=== PATIENT | male | born 1960 | race Caucasian/White ===

== ENCOUNTER 2020-08-21 13:50 | Inpatient (IN) ==
--- NOTE | 2020-08-21 14:20 | Emergency Department Note ---
Impression & Plan GIB (gastrointestinal bleeding), Acute anemia, Heme positive stool ED Provider Note NAME: TARA [id number] TERAN AGE: 60 SEX: M : 1960 ARRIVES VIA: Walk-In INFORMANT: Patient ED PROVIDER(S): Stanley Turner DO CHIEF COMPLAINT: Low hemoglobin HPI: Patient is a 60-year-old male who presents the ER referred in by snf after having blood work done. It was rechecked. Hemoglobin was 7 both times. He has never had this before. He has no other complaints. Denies any headache, chest pain, shortness of breath, nausea vomiting or diarrhea. No dysuria urgenc y or frequency. No dark tarry stools or bright red blood per rectum. [place] any blood thinners. No other exacerbating or remitting factors. No history of any previous colonoscopies. ROS: See above HPI for pertinent positives & negatives. A total of 10 systems reviewed and were otherwise negative. PAST MEDICAL HISTORY:See Below PAST SURGICAL HISTORY:See Below FAMILY HISTORY:See Below SOCIAL HISTORY:See Below HOME MEDICATIONS:See Below ALLERGIES:See Below VITALS:See Below PHYSICAL EXAMINATION: GENERAL: Sitting up in bed, alert, well appearing, well nourished, no distress, non-toxic EYE EXAM: normal conjunctiva. OROPHARYNX: no exudate, no erythema, lips, buccal mucosa, and tongue normal and mucous membranes are moist NECK: supple, no nuchal rigidity, no adenopathy, non-tender LUNGS: Clear to auscultation. Normal chest wall mechanics HEART: no murmurs, S1 normal and S2 normal ABDOMEN: abdomen soft, non-tender, normo-active bowel sounds, no masses, no rebound or guarding. RECTAL: UPPER EXTREMITIES: upper extremities are grossly normal. LOWER EXTREMITIES: No pitting edema. NEURO EXAM: Normal sensorium, cranial nerves II-XII grossly intact, normal speech, no gross weakness of arms, no gross weakness of legs. MEDICAL DECISION MAKING: Patient is a 58-year-old male referred in by snf for low hemoglobin. IV was established with work obtained. Labs show no significant leukocytosis. Mild anemia at 7. INR was unremarkable. BMP along with LFTs bilirubin was unremarkable. Heme positive stools. Patient was typed and screened. Blood consent was obtained by myself at bedside. Patient was updated bedside. Discussed with the hospitalist. Patient will be admitted for anemia with a hemoglobin of 7, rectally heme positive stools and no belly pain had no blood thinners. Uncertain of the previous hemoglobins. Triage Nursing notes reviewed. Prior medical records reviewed Vital Signs: reviewed and remarkable for no significant abnormalities Differential diagnosis: Differential diagnosis includes etiologies such as diverticulitis, diverticulosis, AVM, coagulopathy, colitis, inflammatory bowel disease, malignancy, Erin-Pinon tear, esophagitis, peptic ulcer disease, variceal bleed, gastritis, epistaxis, fissure, hemorrhoids, as well as others were entertained. ER treatment provided: See below Diagnostics interpreted by me: ECG: Sinus rhythm rate 84 Normal axis No PVCs Normal QTC Cardiac Monitoring: An order was placed for continuous cardiac monitoring. The monitor shows a rate of 82 with sinus rhythm. Laboratory studies: As stated above and show below. Imaging studies: See below Consultation(s): D/w hospitalist for further evaluation ED COURSE: Procedures: none Critical Care: None Past Med/Surg History Social History Smoking Status: Never smoker Feels Safe at Home: Yes Allergies Allergies Allergy/AdvReac Type Severity Reaction Status Date / Time No Known Allergies Allergy Unverified 08/21/20 14:23 Home Meds Home Medications Medication Instructions Recorded Confirmed pantoprazole 20 mg PO BID 08/21/20 08/21/20 simethicone [Mi-Acid Gas 160 mg PO TID 08/21/20 08/21/20 Relief(simethicon)] tamsulosin 0.4 mg PO DAILY 08/21/20 08/21/20 Results & Data (ED) Vital Signs Vital Signs - 24 hr 08/21/20 13:52 08/21/20 14:39 08/21/20 15:00 Temperature 36.8 C Temperature Source Oral Pulse Rate 88 86 Pulse Rate [Apical] 82 Pulse Rate from SpO2 Sensor 85 Pulse Rhythm Regular Pulse Strength Normal Respiratory Rate 18 18 19 Respiratory Effort / Characteristics Non-Labored Respiratory Depth Normal Respiratory Pattern Regular Blood Pressure 135/85 151/74 H Blood Pressure [Right Arm] 133/78 Blood Pressure Mean 101 86 Blood Pressure Mean [Right Arm] 96 Blood Pressure Position Sitting Pulse Oximetry 99 99 99 Oxygen Delivery Method Room Air Room Air Room Air Sepsis Recent Fever Within 48 Hours No Sepsis New/Unexplained Change in Mental Status No Sepsis Action Taken by Nursing No Action Required 08/21/20 15:30 08/21/20 16:00 08/21/20 16:30 Temperature Temperature Source Pulse Rate 80 80 83 Pulse Rate [Apical] Pulse Rate from SpO2 Sensor 80 80 83 Pulse Rhythm Pulse Strength Respiratory Rate 19 19 23 Respiratory Effort / Characteristics Respiratory Depth Respiratory Pattern Blood Pressure 144/78 H 127/82 145/91 H Blood Pressure [Right Arm] Blood Pressure Mean 93 91 102 Blood Pressure Mean [Right Arm] Blood Pressure Position Pulse Oximetry 99 100 99 Oxygen Delivery Method Room Air Room Air Room Air Sepsis Recent Fever Within 48 Hours Sepsis New/Unexplained Change in Mental Status Sepsis Action Taken by Nursing Laboratory Data Result diagrams: 08/21/20 14:14 08/21/20 14:14 Lab Results 08/21/20 08/21/20 08/21/20 Range/Units 14:14 14:14 14:14 WBC 7.25 (4.8-10.8) K/uL RBC 3.81 L (4.7-6.1) M/uL Hgb 7.0 L (14.0-18.0) g/dL Hct 26.0 L (42-52) % MCV 68.2 L (80-100) fL MCH 18.4 L (25-34) pg MCHC 26.9 L (32-36) g/dL RDW Std Deviation 44.8 (36.4-46.3) fL RDW Coeff of Herminio 18.6 H (11.5-14.5) % Plt Count 352 (130-400) K/uL MPV 11.1 H (7.4-10.4) fL Immature Gran % (Auto) 0.1 % Neut % (Auto) 73.8 % Lymph % (Auto) 14.1 % Erie % (Auto) 9.0 % Eos % (Auto) 1.8 % Baso % (Auto) 1.2 % Neut # (Auto) 5.35 (1.4-6.5) K/uL Lymph # (Auto) 1.02 L (1.2-3.4) K/uL Erie # (Auto) 0.65 H (0.11-0.59) K/uL Eos # (Auto) 0.13 (0-0.5) K/uL Baso # (Auto) 0.09 (0-0.2) K/uL Immature Gran # (Auto) 0.01 (0.00-0.02) K/uL Hypochromasia Present Microcytosis Present PT 10.9 (9.0-12.0) Seconds INR 1.0 (0.9-1.1) APTT 26.5 (21.0-31.0) Seconds PTT Ratio 0.9 Sodium (136-145) mmol/L Potassium (3.5-5.1) mmol/L Chloride (98-107) mmol/L Carbon Dioxide (21-32) mmol/L Anion Gap (3-11) BUN (7-18) mg/dl Creatinine (0.6-1.4) mg/dl Est Cr Clr Drug Dosing ml/min Est GFR ( Amer) Est GFR (Non-Af Amer) BUN/Creatinine Ratio (10-20) Glucose (70-99) mg/dl Calcium (8.5-10.1) mg/dl Total Bilirubin (0.2-1) mg/dl AST (15-37) U/L ALT (12-78) U/L Alkaline Phosphatase (45-117) U/L Total Protein (6.4-8.2) gm/dl Albumin (3.4-5.0) gm/dl Globulin (2.5-4.0) gm/dl Albumin/Globulin Ratio (0.9-2) POC Stool Occult Blood (Negative) Blood Type B Positive Antibody Screen NEGATIVE 08/21/20 08/21/20 Range/Units 14:14 Unknown WBC (4.8-10.8) K/uL RBC (4.7-6.1) M/uL Hgb (14.0-18.0) g/dL Hct (42-52) % MCV (80-100) fL MCH (25-34) pg MCHC (32-36) g/dL RDW Std Deviation (36.4-46.3) fL RDW Coeff of Herminio (11.5-14.5) % Plt Count (130-400) K/uL MPV (7.4-10.4) fL Immature Gran % (Auto) % Neut % (Auto) % Lymph % (Auto) % Erie % (Auto) % Eos % (Auto) % Baso % (Auto) % Neut # (Auto) (1.4-6.5) K/uL Lymph # (Auto) (1.2-3.4) K/uL Erie # (Auto) (0.11-0.59) K/uL Eos # (Auto) (0-0.5) K/uL Baso # (Auto) (0-0.2) K/uL Immature Gran # (Auto) (0.00-0.02) K/uL Hypochromasia Microcytosis PT (9.0-12.0) Seconds INR (0.9-1.1) APTT (21.0-31.0) Seconds PTT Ratio Sodium 138 (136-145) mmol/L Potassium 4.1 (3.5-5.1) mmol/L Chloride 107 (98-107) mmol/L Carbon Dioxide 25 (21-32) mmol/L Anion Gap 6.0 (3-11) BUN 10 (7-18) mg/dl Creatinine 0.83 (0.6-1.4) mg/dl Est Cr Clr Drug Dosing 86.3 ml/min Est GFR ( Amer) 109.3 Est GFR (Non-Af Amer) 94.3 BUN/Creatinine Ratio 12.2 (10-20) Glucose 104 H (70-99) mg/dl Calcium 8.3 L (8.5-10.1) mg/dl Total Bilirubin 0.3 (0.2-1) mg/dl AST 32 (15-37) U/L ALT 43 (12-78) U/L Alkaline Phosphatase 137 H (45-117) U/L Total Protein 7.6 (6.4-8.2) gm/dl Albumin 3.5 (3.4-5.0) gm/dl Globulin 4.1 H (2.5-4.0) gm/dl Albumin/Globulin Ratio 0.8 L (0.9-2) POC Stool Occult Blood Positive A (Negative) Blood Type Antibody Screen Discharge Plan Visit Data Chief Complaint: Abnormal Labs/Diagnostic Testing Stated Complaint: LOW H/H ED Provider: Stanley Turner Discharge Problem: GIB (gastrointestinal bleeding), Acute anemia, Heme positive stool Forms Stand Alone Forms: [facility] Prescriptions Prescriptions: No Action pantoprazole 20 mg Tablet,Delayed Release (Dr/Ec) 20 mg PO BID RF: 0 tamsulosin 0.4 mg Capsule 0.4 mg PO DAILY RF: 0 simethicone [Mi-Acid Gas Relief(simethicon)] 80 mg Tablet,Chewable 160 mg PO TID RF: 0 Discharge Problem: GIB (gastrointestinal bleeding) Qualifiers: GI bleed type/associated pathology: unspecified gastrointestinal hemorrhage type Qualified Code(s): K92.2 - Gastrointestinal hemorrhage, unspecified
[2020-08-21 14:44] LABS: Partial Thromboplastin Ratio 0.9; Partial Thromboplastin Time 26.5 Seconds (21.0-31.0); Prothrombin Time 10.9 Seconds (9.0-12.0)
[2020-08-21 14:47] LABS: Albumin Level 3.5 gm/dl (3.4-5.0); BUN Creatinine Ratio 12.2 (10-20); Basophils # (auto) 0.09 K/uL (0-0.2); Basophils % (auto) 1.2 %; Calcium 8.3 mg/dl (8.5-10.1); Creatinine Clr Calc Pharmacy 86.3 ml/min; Eosinophils # (auto) 0.13 K/uL (0-0.5); Eosinophils % (auto) 1.8 %; Est GFR (African American) 109.3; Est GFR (Non-African American) 94.3; Hypochromasia Present; Immature Granulocytes # (auto) 0.01 K/uL (0.00-0.02); Immature Granulocytes % (auto) 0.1 %; Lymphocytes # (auto) 1.02 K/uL (1.2-3.4); Lymphocytes % (auto) 14.1 %; Mean Corpuscular Hemoglobin 18.4 pg (25-34); Mean Corpuscular Hgb Conc 26.9 g/dL (32-36); Mean Corpuscular Volume 68.2 fL (80-100); Mean Platelet Volume 11.1 fL (7.4-10.4); Microcytosis Present; Monocytes # (auto) 0.65 K/uL (0.11-0.59); Neutrophils # (auto) 5.35 K/uL (1.4-6.5); Neutrophils % (auto) 73.8 %; Platelet Count 352 K/uL (130-400); Potassium 4.1 mmol/L (3.5-5.1); RDW Coefficient of Variation 18.6 % (11.5-14.5); RDW Standard Deviation 44.8 fL (36.4-46.3); Red Blood Count 3.81 M/uL (4.7-6.1); White Blood Count 7.25 K/uL (4.8-10.8)
[2020-08-21 14:50] LABS: Albumin Globulin Ratio 0.8 (0.9-2); Bilirubin,Total 0.3 mg/dl (0.2-1); Globulin 4.1 gm/dl (2.5-4.0); Total Protein 7.6 gm/dl (6.4-8.2)
--- NOTE | 2020-08-21 16:19 | History & Physical Report ---
Date of Service August 21, 2020 Assessment & Plan (1) Acute anemia: * H&H of 7.0/26.0 which has been consistent over the past several days. * Will trend H&H. * Patient filled out blood consent for transfusion if needed. * Heme POSITIVE stools. See GIB. * Thankfully, patient asymptomatic at this time. Will monitor on tele. Present on Admission?: Yes (2) GIB (gastrointestinal bleeding): * Concerning in the anemia patient w/ heme positive stools. * Will add Protonix BID. * Trend H&H * Transfuse if needed. * Monitor closely on Tele. * No prior Colonoscopy. Brother w/ recent h/o polypectomy. * Currently takes Famotidine daily for "heart burn" * Appreciate GI Recommendations. Present on Admission?: Yes (3) Heme positive stool: * Continue w/ Treatment outline in GIB/Acute Anemia Present on Admission?: Yes Admission and Anticipated Discharge Date Admission Date: 08/21/2020 History of Present Illness Primary Care Provider: [facility] Patient is a 60-year-old male with limited reported past medical history of GERD and prostamegaly that is currently incarcerated at [facility]. He states that he has been enjoying his typical state of good health, but had yearly labs performed last week that were done as part of his routine yearly physical exam. He states that after his labs, he was contacted by the [facility] as they were concerned for his H&H as well as his potassium levels. He had labs repeated which demonstrated persistently low hemoglobin and hematocrit levels. He was subsequently directed to the emergency department for further evaluation and management. Upon arrival in the emergency department, the patient was noted to have hemoglobin of 7.0 with hematocrit of 26. This is been consistent for the last few days. Patient states that despite these numbers, he has noted no change in his physical activity or tolerance. He states that he walks daily every day outside and has been performing the duties of his job without issue. He specifically denies any presyncopal symptoms, dizziness, lightheadedness, shortness of breath, chest pain, palpitations, or abdominal pain. He denies any black/tarry stools. He states that he did perform Hemoccult testing as part of his yearly evaluation which she was informed were negative. He denies any family history of colon cancer, however he states that his brother did recently have a colonoscopy with subsequent polypectomy. His father had a history of liver cancer as well as lung cancer. Mother did have significant history for factor VII deficiency. He states that he has been aware of this and does take note when he bleeds from anything. He did mayelin his ear recently while shaving and states that he stopped bleeding within 30 minutes. He has never noted any issues with bleeding in the past. Patient has personally never had a colonoscopy performed. He was institutionalized just before the age of 48 and has had no routine maintenance that he is aware of. Patient denies any headaches, dizziness, lightheadedness, chest pain, palpitations, shortness of breath, pleuritic pain, nausea, vomiting, abdominal pain, hematochezia, melena, hematuria, dysuria, or numbness/weakness to the extremities. Patient denies any recent exposure to COVID-19 positive individuals. He reports no history of recent shortness of breath, cough, fevers, GI distress, or loss of taste/smell. Allergies Allergy/AdvReac Type Severity Reaction Status Date / Time No Known Allergies Allergy Unverified 08/21/20 14:23 Home Medications Home Medications Medication Instructions Recorded Confirmed Type pantoprazole 20 mg PO BID 08/21/20 08/21/20 History simethicone [Mi-Acid Gas 160 mg PO TID 08/21/20 08/21/20 History Relief(simethicon)] tamsulosin 0.4 mg PO DAILY 08/21/20 08/21/20 History Past Med/Surg History Social History Smoking Status: Never smoker Feels Safe at Home: Yes Review of Systems Review of Systems: A complete 10 point review of systems was reviewed with the patient with pertinent positives and negatives as per history of present illness. All else were negative. Physical Exam Physical Exam: VITAL SIGNS - Vital signs and nursing notes were reviewed. GENERAL - 60-year-old male appearing his stated age who is in no acute distress. Communicates well with provider and answers questions appropriately. HEAD - NC/AT. EYES - PERRL with EOMI bilaterally. Sclera anicteric. Palpebral conjunctiva pink and moist with no injection noted. EARS - No deformities of external structures noted on gross examination bilaterally. No pain elicited with palpation of the tragus bilaterally. NOSE - Midline and without cyanosis. No epistaxis or purulent drainage noted. MOUTH/OROPHARYNX - Without perioral cyanosis. Buccal mucosa pink and moist and without leukoplakia. Tongue midline with equal elevation of palate bilaterally. Good dentition noted. NECK - Neck with FROM. Supple to palpation. No nuchal rigidity. LUNGS - Chest wall symmetric without accessory muscle use, intercostals retractions, or central cyanosis. Normal vesicular breath sounds CTA B/L. No wheezes, rales, or rhonchi appreciated. CARDIAC - RRR with S1/S2. No murmur, rubs, or gallops appreciated. ABDOMEN - Abdominal contour flat without pulsations or visible masses. Negative Rodger's or Arroyo Shaffer's Signs. BS normoactive all four quadrants. No tenderness to palpation appreciated throughout. No guarding. No Rebound Tenderness. Negative Vovsing's. Negative Nascimento's. No palpable masses, hepatosplenomegaly, or ascites noted. EXTREMITIES - No clubbing or peripheral cyanosis. No pretibial edema present. +3/5 radial and dorsalis pedis pulses palpated throughout. +5/5 strength noted in UE/LE bilaterally. NEUROLOGIC - Cranial nerves II through XII grossly intact. Sensory intact to light touch throughout. PSYCH - A&Ox3 and cooperates fully with examiner. Pt is very pleasant and interacts well with examiner. Constitutional: WD/WN, vitals as above Eyes: normal visual sosa by confrontation and + anicteric sclerae Neck: normal visual inspection and trachea midline Respiratory: normal respiratory effort, lungs clear to auscultation Cardiovascular: Rate/Rhythm: regular rate and regular rhythm Chest (Breasts): Additional Comments: region of breast just outside of nipple, R upper/lateral with fibrous feeling mass, circumscribed, mobile c/w fibrocystic vs scar tissue Gastrointestinal (Abdomen): Inspection/Auscultation: abdomen not distended Percussion/Palpation: abdomen soft; abdomen nontender Musculoskeletal: Head/Neck/Chest: normocephalic and head atraumatic Neg for peripheral LE edema, + pedal pulses Skin: no rashes, warm and dry Neurologic: awake; not confused Speech / Cognition: normal speech Psychiatric: A+Ox3, euthymic affect Lymphatic: Exam as done by Ophelia Sin DO Results & Data Results & Data ([facility]) Vital Signs (Past 12 Hours) Vital Signs Temp Pulse Pulse Resp BP BP Pulse Ox 08/21/20 15:30 80 19 144/78 H 99 08/21/20 15:00 86 19 151/74 H 99 08/21/20 14:39 82 18 133/78 99 08/21/20 13:52 36.8 C 88 18 135/85 99 Code Status & VTE Plan VTE Prophylaxis Plan VTE Prophylaxis will be ordered: No Reason for no VTE drug order: Contraindicated (GIB) Supervising Physician Co-Signing Physician Notes Pt seen and examined by me. States he has felt well and doing his daily walking, going to work. Routine labs were done and noted for Hb 7.0 a few days ago. Repeat today at snf was same and so pt was sent here for further workup. Denies chest pain or SOB. Tolerating PO without issue. States he shaves his chest occasionally and a few weeks ago, he had a minor cut around his L nipple. States that he noted a lump there at that time. States it is more noticeable when he leans forward. No abd skin findings, discharge, bleeding. No FH breast or colon ca Agree with HPI/ROS as noted by PA See above for my exam in PE section Agree with plan as outlined above Heme + Repeat H/H 8p Transfuse as needed GI c/s NPO Advised that L breast lump is c/w fibrocystic vs scar tissue Can pursue breast US as outpt PG Care Time/CCT Total # of Minutes Spent Total Time Spent with Patient: Total time spent is greater than 50% in coordination of care (as documented) at patient's floor/unit and/or counseling patient: Coding Level of Care Code 51821 Initial Inpt Care Lvl 3 Diagnoses Acute anemia D64.9 GIB (gastrointestinal bleeding) K92.2 GI bleed type/associated pathology: unspecified gastrointestinal hemorrhage type Heme positive stool R19.5 Time Spent (min) 35 (1) GIB (gastrointestinal bleeding) GI bleed type/associated pathology: unspecified gastrointestinal hemorrhage type Qualified Code(s): K92.2 - Gastrointestinal hemorrhage, unspecified
[2020-08-21] MEDS ORDERED: ONDANSETRON INJ 2 MG/ML 2 ML VIAL IV PRN (18:51)
[2020-08-21] MEDS: SODIUM CHLORIDE 0.9% 1000ML 1,000 ML IV SCH (19:42)
[2020-08-21 20:35] LABS: Hematocrit (blood only) 24.9 % (42-52); Hemoglobin 6.7 g/dL (14.0-18.0)
[2020-08-21] MEDS: PANTOprazole 40 MG in SYRINGE 0 ML IV SCH (20:50)
[2020-08-21] MEDS ORDERED: SODIUM CHLORIDE 0.9% 250 ML IV PRN (21:01)
--- NOTE | 2020-08-21 21:06 | Communication Note ---
Date of Service: August 21, 2020 Notified that pt's Hgb recheck came back at 6.7. Ordered 2U to be transfused. Re-check of H/H already ordered for 2AM, q6h after that. 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
--- NOTE | 2020-08-22 05:37 | Electrocardiogram Report ---
Test Reason : Blood Pressure : / mmHG Vent. Rate : 084 BPM Atrial Rate : 084 BPM P-R Int : 130 ms QRS Dur : 084 ms QT Int : 386 ms P-R-T Axes : 046 055 048 degrees QTc Int : 456 ms Normal sinus rhythm Normal ECG No previous ECGs available Confirmed by Ramone Chaidez ([id number]) on 08/22/2020 5:36:50 AM Referred By: [facility] Confirmed By:Ramone Chaidez
[2020-08-22] MEDS: PANTOprazole 40 MG in SYRINGE 0 ML IV SCH (08:30)
[2020-08-22 09:22] LABS: Hemoglobin 9.2 g/dL (14.0-18.0); Mean Corpuscular Hemoglobin 20.2 pg (25-34); Mean Corpuscular Hgb Conc 28.8 g/dL (32-36); Mean Corpuscular Volume 70.2 fL (80-100); Platelet Count 321 K/uL (130-400); RDW Coefficient of Variation 21.1 % (11.5-14.5); Red Blood Count 4.56 M/uL (4.7-6.1); White Blood Count 5.15 K/uL (4.8-10.8)
[2020-08-22 09:30] LABS: Basophils % (auto) 1.9 %; Eosinophils # (auto) 0.12 K/uL (0-0.5); Eosinophils % (auto) 2.3 %; Hypochromasia Present; Immature Granulocytes # (auto) 0.01 K/uL (0.00-0.02); Immature Granulocytes % (auto) 0.2 %; Lymphocytes # (auto) 0.79 K/uL (1.2-3.4); Lymphocytes % (auto) 15.3 %; Microcytosis Present; Monocytes # (auto) 0.49 K/uL (0.11-0.59); Monocytes % (auto) 9.5 %; Neutrophils # (auto) 3.64 K/uL (1.4-6.5); Neutrophils % (auto) 70.8 %; Rouleaux 1+
[2020-08-22 09:35] LABS: BUN Creatinine Ratio 11.1 (10-20); Calcium 8.2 mg/dl (8.5-10.1); Creatinine Clr Calc Pharmacy 92.4 ml/min; Est GFR (African American) 113.3; Est GFR (Non-African American) 97.8; Potassium 4.7 mmol/L (3.5-5.1)
--- NOTE | 2020-08-22 10:06 | Gastrointestinal Consultation ---
Date of Consultation August 22, 2020 Assessment & Plan (1) GIB (gastrointestinal bleeding): (2) Heme positive stool: Diff dx: PUD vs AVM vs mass vs other. 1. Remain NPO for now. 2. EGD with Dr. Cruz today for further evaluation. 3. Continue Pantoprazole 40 mg IV BID. 4. Continue supportive care. 5. Additional recommendations will be made pending results of testing. Thank you for allowing us to participate in the care of this patient. If you have any questions or concerns, please do not hesitate to contact us. Supervising Physician Co-Signing Physician Notes I personally evaluated the patient and agree with the findings as documented by NAHUN Perez Exam: abd: soft, nt, nd Proceed with EGD. risks/benefits and procedure discussed with patient, who agrees to proceed History of Present Illness Reason for Consultation: GIB Requesting Physician: Lamont Garcia PA-C Attending Physician: Alvarado Donahue MD History of Present Illness Patient is a 60 year-old male admitted from [facility] after being found to be profoundly anemic during a routine health evaluation. Reports that he did have 6 negative [facility] tests [facility] States he has no symptoms of anemia such as: chest pain, shortness of breath, MAST, dizziness, syncope or fatigue. He further denies any overt GIB symptoms. He does endorse progressively worsening pyrosis since December of this year. He states he did seek sick call to obtain acid suppressive medications and Gas-x due to increased flatus. No ibuprofen use but he does endorse daily low dose aspirin use. No nausea or vomiting, anorexia, abdominal pain, diarrhea or constipation. He has been admitted with a H&H of 7.3/27.9 and ferritin 2.4. He was heme positive in the ER. Repeat H&H this morning was noted to be 7.3/27.2. The patient has been placed on NPO status and initiated on twice daily Protonix. No family history of GI malignancy or IBD. Allergies Allergy/AdvReac Type Severity Reaction Status Date / Time No Known Allergies Allergy Unverified 08/21/20 14:23 Home Medications Home Medications Medication Instructions Recorded Confirmed Type pantoprazole 20 mg PO BID 08/21/20 08/21/20 History simethicone [Mi-Acid Gas 160 mg PO TID 08/21/20 08/21/20 History Relief(simethicon)] tamsulosin 0.4 mg PO DAILY 08/21/20 08/21/20 History Patient History Medical History (Updated 08/22/20 @ 11:52 by Lisa Navarro MD) Acute anemia GERD (gastroesophageal reflux disease) GIB (gastrointestinal bleeding) Surgical History (Updated 08/22/20 @ 11:52 by Lisa Navarro MD) No significant past surgical history Family History (Updated 08/22/20 @ 11:52 by Lisa Navarro MD) Mother Clotting disorder Factor V Leiden Social History Smoking Status: Former smoker Second Hand Exposure: No; Do You Dip or Chew Tobacco: No; Hx Alcohol Use: No Hx Substance Use: No Preferred Language: Dominican Communication Ability: Effective 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 Beliefs That Will Affect Care: None Current Living Situation: Other Other Information That Helps Us Care for You: No Feels Safe at Home: Yes Safety Concerns: Feels Safe At This Time Assistive Devices: Glasses Assistive Devices Comment: With patient Review of Systems Review of Systems: All systems reviewed & are unremarkable except as noted in HPI & below Physical Exam Constitutional: WD/WN, vitals as above Eyes: EOM intact bilaterally Neck: normal appearance Respiratory: normal respiratory effort, lungs clear to auscultation Cardiovascular: Rate/Rhythm: regular rate and regular rhythm Heart Sounds: no gallop and no murmur Gastrointestinal (Abdomen): normal bowel sounds, soft, nontender, no hepatosplenomegaly Inspection/Auscultation: abdomen not distended Musculoskeletal: Extremities: no cyanosis no lower extremity edema Skin: no rashes, warm and dry Neurologic: moves all extremities Psychiatric: A+Ox3, euthymic affect Results & Data ([facility]) Vital Signs (Past 12 Hours) Vital Signs Temp Pulse Pulse Resp BP BP Pulse Ox 08/22/20 08:05 36.8 C 56 L 18 124/69 96 08/22/20 04:25 36.9 C 63 18 113/65 99 08/22/20 03:18 36.9 C 68 18 122/74 96 08/22/20 02:48 36.8 C 72 18 119/75 96 08/22/20 02:33 36.8 C 69 18 124/74 95 08/22/20 02:11 36.9 C 69 18 130/77 97 08/22/20 01:11 36.8 C 62 18 132/80 96 08/22/20 00:55 36.8 C 62 18 132/80 96 08/22/20 00:27 36.7 C 68 18 118/73 95 08/21/20 23:37 65 08/21/20 23:27 36.7 C 66 18 129/80 97 08/21/20 22:57 36.9 C 64 16 124/76 97 08/21/20 22:42 37.1 C 63 16 128/79 97 08/21/20 22:18 36.8 C 66 18 137/82 98 Laboratory Results Abnormal lab results 08/21/20 08/21/20 08/21/20 Range/Units 14:14 14:14 14:14 RBC 3.81 L (4.7-6.1) M/uL Hgb 7.0 L (14.0-18.0) g/dL Hct 26.0 L (42-52) % MCV 68.2 L (80-100) fL MCH 18.4 L (25-34) pg MCHC 26.9 L (32-36) g/dL RDW Std Deviation (36.4-46.3) fL RDW Coeff of Herminio 18.6 H (11.5-14.5) % MPV 11.1 H (7.4-10.4) fL Lymph # (Auto) 1.02 L (1.2-3.4) K/uL [place] # (Auto) 0.65 H (0.11-0.59) K/uL Chloride (98-107) mmol/L Glucose 104 H (70-99) mg/dl Calcium 8.3 L (8.5-10.1) mg/dl Alkaline Phosphatase 137 H (45-117) U/L Globulin 4.1 H (2.5-4.0) gm/dl Albumin/Globulin Ratio 0.8 L (0.9-2) POC Stool Occult Blood (Negative) Crossmatch See Detail 08/21/20 08/21/20 08/22/20 Range/Units 20:04 Unknown 08:30 RBC 4.56 L (4.7-6.1) M/uL Hgb 6.7 L* 9.2 L (14.0-18.0) g/dL Hct 24.9 L 32.0 L (42-52) % MCV 70.2 L (80-100) fL MCH 20.2 L (25-34) pg MCHC 28.8 L (32-36) g/dL RDW Std Deviation 52.0 H (36.4-46.3) fL RDW Coeff of Herminio 21.1 H (11.5-14.5) % MPV 11.0 H (7.4-10.4) fL Lymph # (Auto) 0.79 L (1.2-3.4) K/uL [place] # (Auto) (0.11-0.59) K/uL Chloride (98-107) mmol/L Glucose (70-99) mg/dl Calcium (8.5-10.1) mg/dl Alkaline Phosphatase (45-117) U/L Globulin (2.5-4.0) gm/dl Albumin/Globulin Ratio (0.9-2) POC Stool Occult Blood Positive A (Negative) Crossmatch 08/22/20 Range/Units 08:30 RBC (4.7-6.1) M/uL Hgb (14.0-18.0) g/dL Hct (42-52) % MCV (80-100) fL MCH (25-34) pg MCHC (32-36) g/dL RDW Std Deviation (36.4-46.3) fL RDW Coeff of Herminio (11.5-14.5) % MPV (7.4-10.4) fL Lymph # (Auto) (1.2-3.4) K/uL [place] # (Auto) (0.11-0.59) K/uL Chloride 110 H (98-107) mmol/L Glucose (70-99) mg/dl Calcium 8.2 L (8.5-10.1) mg/dl Alkaline Phosphatase (45-117) U/L Globulin (2.5-4.0) gm/dl Albumin/Globulin Ratio (0.9-2) POC Stool Occult Blood (Negative) Crossmatch PG Care Time/CCT Total # of Minutes Spent Total Time Spent with Patient: Total time spent is greater than 50% in coordination of care (as documented) at patient's floor/unit and/or counseling patient: Coding Level of Care Code 70376 Office/OBS Consult Lvl 4 Diagnoses GIB (gastrointestinal bleeding) K92.2 GI bleed type/associated pathology: unspecified gastrointestinal hemorrhage type Heme positive stool R19.5 (1) GIB (gastrointestinal bleeding) GI bleed type/associated pathology: unspecified gastrointestinal hemorrhage type Qualified Code(s): K92.2 - Gastrointestinal hemorrhage, unspecified
--- NOTE | 2020-08-22 11:53 | Anesthesiology Consultation ---
Date of Service August 22, 2020 Assessment & Plan (1) Encounter for pre-operative examination: Chart Review Chart Review: Acceptable Risk for Surgery and Patient NOT seen in Pre Admission Testing Consults Requested none History Surgery Operation Date: 08/22/20 16:30 Proposed Procedures p Esophagogastroduodenoscopy Dr. Nancy Cruz MD Height/Weight Height: 5 ft 7 in Weight: 64.8 kg Allergies Allergy/AdvReac Type Severity Reaction Status Date / Time No Known Allergies Allergy Unverified 08/21/20 14:23 Medications Home Medications Medication Instructions Recorded Confirmed Last Taken pantoprazole 20 mg PO BID 08/21/20 08/21/20 Unknown simethicone [Mi-Acid Gas 160 mg PO TID 08/21/20 08/21/20 Unknown Relief(simethicon)] tamsulosin 0.4 mg PO DAILY 08/21/20 08/21/20 Unknown Active Medications Generic Name Dose Route Start Last Admin Trade Name Freq PRN Reason Stop Dose Admin Sodium Chloride 1,000 mls @ 100 mls/hr 08/21/20 18:51 08/22/20 04:27 Nss 1000ml IV 09/20/20 18:50 100 mls/hr .Q10H HUSSEIN Infusion Pantoprazole Sodium 40 mg/ 10 mls @ 5 mls/min 08/21/20 21:00 08/22/20 08:30 Syringe IV 09/20/20 20:59 5 mls/min BID HUSSEIN Administration Past Medical History Medical History (Updated 08/22/20 @ 11:52 by Lisa Navarro MD) Acute anemia GERD (gastroesophageal reflux disease) GIB (gastrointestinal bleeding) Past Family History Family History (Updated 08/22/20 @ 11:52 by Lisa Navarro MD) Mother Clotting disorder Factor V Leiden Past Surgical History Surgical History (Updated 08/22/20 @ 11:52 by Lisa Navarro MD) No significant past surgical history Social History Smoking Status: Former smoker Do You Dip or Chew Tobacco: No Hx Alcohol Use: No Hx Substance Use: No Physical Exam Vital Signs Last Vital Signs Temp 36.8 C 08/22/20 08:05 Pulse 75 08/22/20 08:30 Resp 18 08/22/20 08:05 BP 124/69 08/22/20 08:05 Pulse Ox 96 08/22/20 08:05 Testing Laboratory Results 08/22/20 08:30 08/22/20 08:30 PT 10.9 Seconds (9.0-12.0) 08/21/20 14:14 INR 1.0 (0.9-1.1) 08/21/20 14:14 APTT 26.5 Seconds (21.0-31.0) 08/21/20 14:14 Blood Type B Positive 08/21/20 14:14 Antibody Screen NEGATIVE 08/21/20 14:14
[2020-08-22] MEDS: SODIUM CHLORIDE 0.9% 1000ML 1,000 ML IV SCH ×2 (14:02→16:08)
[2020-08-22] MEDS ORDERED: LIDOCAINE HCL 2% 2 ML VIAL/AMP(20MG/ML) INFIL ONE (15:24)
[2020-08-22] MEDS ORDERED: PROPOFOL IV EMULSION 10 MG/ML 20 ML VIAL IV ONE ×2 (15:24→15:45)
--- NOTE | 2020-08-22 15:46 | GI REPORT ---
Patient Name: Miguel Angel Glynn Procedure Date: 08/22/2020 2:57 PM Date of : 1960 Admit Type: Inpatient Age: 60 Gender: Male Attending MD: Marshall Cruz MD Procedure: Upper GI endoscopy Providers: Marshall Cruz MD Referring MD: Alvarado Donahue Md Indications: Unexplained iron deficiency anemia Medicines: Monitored Anesthesia Care Complications: No immediate complications. Estimated blood loss: None. Estimated Blood Loss: Estimated blood loss: none. Procedure: Pre-Anesthesia Assessment: - Prior Anticoagulants: The patient has taken no previous anticoagulant or antiplatelet agents. - ASA Grade Assessment: II - A patient with mild systemic disease. After obtaining informed consent, the endoscope was passed under direct vision. Throughout the procedure, the patient's blood pressure, pulse, and oxygen saturations were monitored continuously. The Endoscope was introduced through the mouth, and advanced to the second part of duodenum. The upper GI endoscopy was accomplished without difficulty. The patient tolerated the procedure well. Findings: The examined esophagus was normal. A single 3 mm sessile polyp with no stigmata of recent bleeding was found in the gastric body. The polyp was removed with a cold snare. Resection and retrieval were complete. Estimated blood loss: none. Flattening was found in the second portion of the duodenum and scalloped mucosa was found in the second portion of the duodenum. Biopsies for histology were taken with a cold forceps for evaluation of celiac disease. Estimated blood loss: none. The exam was otherwise without abnormality. No evidence of ulcers, AVMs, blood. Impression: - Normal esophagus. - A single gastric polyp. Resected and retrieved. - Duodenal mucosal changes seen, suspicious for celiac disease. Biopsied. - The examination was otherwise normal. Recommendation: - [facility] to [facility] care. - Resume previous diet today. - Await pathology results. if path nondiagnostic of celiac disease, then will need colonoscopy in the near future to evaluate the anemia further. Marshall Cruz MD 08/22/2020 3:46:02 PM This report has been signed electronically. Note Initiated On: 08/22/2020 2:57 PM Number of Addenda: 0 I attest to the content of the Intraoperative Record and orders documented therein, exceptions below {[id number]}
--- NOTE | 2020-08-22 15:59 | Hospitalist Progress Note ---
Date of Service August 22, 2020 Assessment & Plan (1) Acute anemia: Presumed acute, though the patient has not noted any blood or melenic stools. - Hgb bounced from 6.7 to 9.2 with 2 units PRBCs. - EGD on 08/22 indicates possible celiac disease. - Will order tTG and IgA - Follow pathology - Restart gluten-free diet. (2) GIB (gastrointestinal bleeding): Fecal occult positive. - As above (3) BPH (benign prostatic hyperplasia): No LUTS at present. - Will continue tamsulosin. (4) DVT prophylaxis: SCDs - Holding heparin for anemia and concern for GI bleeding Admission and Anticipated Discharge Date Admission Date: August 21, 2020 Subjective No issues today. No noted bowel movements with blood in them today. Reports no fevers/chills, chest pain, shortness of breath, abdominal pain, nausea, or vomiting. Physical Exam Constitutional: WD/WN, vitals as above Eyes: EOM intact bilaterally; no conjunctival abnormality ENMT: external ear and nose normal, oropharynx normal Neck: trachea midline, no thyromegaly normal visual inspection Respiratory: normal respiratory effort, lungs clear to auscultation no respiratory distress Cardiovascular: RRR, no murmur, no edema Gastrointestinal (Abdomen): Inspection/Auscultation: abdomen normal to inspection; abdomen not distended Musculoskeletal: no cyanosis or clubbing, extremities motor strength 5/5 Skin: no rashes, warm and dry Neurologic: moves all extremities and awake Psychiatric: Orientation: alert, oriented to person and cooperative Results & Data Results & Data ([facility]) Vital Signs (Past 12 Hours) Vital Signs Temp Pulse Pulse Resp BP BP Pulse Ox 08/22/20 15:44 79 18 102/59 L 99 08/22/20 15:07 36.8 C 76 20 139/94 99 08/22/20 12:08 37.2 C 58 L 18 123/77 95 08/22/20 08:30 75 08/22/20 08:05 36.8 C 56 L 18 124/69 96 08/22/20 04:25 36.9 C 63 18 113/65 99 PG Care Time/CCT Total # of Minutes Spent Total Time Spent with Patient: Total time spent is greater than 50% in coordination of care (as documented) at patient's floor/unit and/or counseling patient: Coding Level of Care Code 79587 Subseq Hosp Care Lvl 3 Diagnoses Acute anemia D64.9 GIB (gastrointestinal bleeding) K92.2 GI bleed type/associated pathology: unspecified gastrointestinal hemorrhage type BPH (benign prostatic hyperplasia) N40.0 DVT prophylaxis Z29.9 (1) GIB (gastrointestinal bleeding) GI bleed type/associated pathology: unspecified gastrointestinal hemorrhage type Qualified Code(s): K92.2 - Gastrointestinal hemorrhage, unspecified
--- NOTE | 2020-08-22 16:06 | Anesthesiology Progress Note ---
Date of Service August 22, 2020 Anesthesia Post Procedure Vital Signs Vital Signs: Temp Pulse Pulse Resp BP BP Pulse Ox 08/22/20 15:59 72 18 97/56 L 97 08/22/20 15:44 79 18 102/59 L 99 08/22/20 15:07 36.8 C 76 20 139/94 99 08/22/20 12:08 37.2 C 58 L 18 123/77 95 08/22/20 08:30 75 08/22/20 08:05 36.8 C 56 L 18 124/69 96 08/22/20 04:25 36.9 C 63 18 113/65 99 08/22/20 03:18 36.9 C 68 18 122/74 96 08/22/20 02:48 36.8 C 72 18 119/75 96 08/22/20 02:33 36.8 C 69 18 124/74 95 08/22/20 02:11 36.9 C 69 18 130/77 97 08/22/20 01:11 36.8 C 62 18 132/80 96 08/22/20 00:55 36.8 C 62 18 132/80 96 08/22/20 00:27 36.7 C 68 18 118/73 95 08/21/20 23:37 65 08/21/20 23:27 36.7 C 66 18 129/80 97 08/21/20 22:57 36.9 C 64 16 124/76 97 08/21/20 22:42 37.1 C 63 16 128/79 97 08/21/20 22:18 36.8 C 66 18 137/82 98 08/21/20 19:00 36.6 C 67 20 146/67 H 93 08/21/20 18:32 36.8 C 75 18 132/74 99 08/21/20 18:30 36.8 C 72 20 134/78 99 08/21/20 17:00 80 18 137/84 98 08/21/20 16:30 83 23 145/91 H 99 Transfer of Care Handoff Completed per policy Notes Mental Status: alert / awake / arousable Patient Amnestic to Procedure: Yes Nausea / Vomiting: adequately controlled Pain: adequately controlled Airway Patency, RR, SpO2: stable & adequate BP & HR: stable & adequate Hydration State: stable & adequate Anesthetic Complications: no major complications apparent
[2020-08-23 07:51] LABS: Basophils # (auto) 0.09 K/uL (0-0.2); Basophils % (auto) 1.5 %; Eosinophils # (auto) 0.27 K/uL (0-0.5); Eosinophils % (auto) 4.6 %; Hematocrit (blood only) 33.4 % (42-52); Hemoglobin 9.7 g/dL (14.0-18.0); Immature Granulocytes # (auto) 0.01 K/uL (0.00-0.02); Immature Granulocytes % (auto) 0.2 %; Lymphocytes # (auto) 1.15 K/uL (1.2-3.4); Lymphocytes % (auto) 19.7 %; Mean Corpuscular Hemoglobin 20.5 pg (25-34); Mean Corpuscular Volume 70.6 fL (80-100); Mean Platelet Volume 11.4 fL (7.4-10.4); Monocytes # (auto) 0.51 K/uL (0.11-0.59); Monocytes % (auto) 8.7 %; Neutrophils # (auto) 3.81 K/uL (1.4-6.5); Neutrophils % (auto) 65.3 %; Platelet Count 336 K/uL (130-400); RDW Coefficient of Variation 21.5 % (11.5-14.5); RDW Standard Deviation 53.2 fL (36.4-46.3); Red Blood Count 4.73 M/uL (4.7-6.1); White Blood Count 5.84 K/uL (4.8-10.8)
[2020-08-23] MEDS: PANTOprazole 40 MG TAB PO SCH (08:13)
[2020-08-23 08:21] LABS: Anisocytosis Present; BUN Creatinine Ratio 20.3 (10-20); Creatinine Clr Calc Pharmacy 86.4 ml/min; Est GFR (African American) 110.4; Est GFR (Non-African American) 95.3; Hypochromasia Present; Magnesium 2.3 mg/dl (1.8-2.4); Microcytosis Present; Potassium 4.6 mmol/L (3.5-5.1)
--- NOTE | 2020-08-23 10:20 | Gastroenterology Progress Note ---
Date of Service August 23, 2020 Assessment & Plan (1) GIB (gastrointestinal bleeding): (2) Heme positive stool: 1. Continue 100% gluten free diet while awaiting results of small bowel biopsies. 2. Continue Pantoprazole 40 mg but can reduce to once daily as patient reports having reflux symptoms prior to admission. 3. Continue supportive care. Admission and Anticipated Discharge Date Admission Date: August 21, 2020 Subjective Patient is status post EGD for JAYDE with findings of duodenal flattening suspicious for Celiac disease. Biopsies are pending. The patient is doing well today and offers no GI complaints. H&H remains stable. Review of Systems Review of Systems: All systems reviewed & are unremarkable except as noted in HPI & below Physical Exam Constitutional: WD/WN, vitals as above well developed and well nourished Eyes: EOM intact bilaterally Neck: normal visual inspection Musculoskeletal: Extremities: extremities normal to inspection Psychiatric: A+Ox3, euthymic affect Results & Data Results & Data ([facility]) Vital Signs (Past 12 Hours) Vital Signs Temp Pulse Pulse Resp BP Pulse Ox 08/23/20 07:27 66 08/23/20 07:18 36.7 C 65 20 129/80 97 08/23/20 05:16 36.6 C 62 18 119/73 97 08/22/20 23:50 36.9 C 64 16 105/67 96 08/22/20 23:00 66 Laboratory Results Abnormal lab results 08/22/20 08/23/20 08/23/20 Range/Units 16:25 07:30 07:30 Hgb 9.7 L (14.0-18.0) g/dL Hct 33.4 L (42-52) % MCV 70.6 L (80-100) fL MCH 20.5 L (25-34) pg MCHC 29.0 L (32-36) g/dL RDW Std Deviation 53.2 H (36.4-46.3) fL RDW Coeff of Herminio 21.5 H (11.5-14.5) % MPV 11.4 H (7.4-10.4) fL Lymph # (Auto) 1.15 L (1.2-3.4) K/uL Chloride 109 H (98-107) mmol/L BUN/Creatinine Ratio 20.3 H (10-20) Calcium 8.0 L (8.5-10.1) mg/dl IgA 507.0 H (70-400) mg/dl PG Care Time/CCT Total # of Minutes Spent Total Time Spent with Patient: Total time spent is greater than 50% in coordination of care (as documented) at patient's floor/unit and/or counseling patient: Coding Level of Care Code 90525 Subseq Hosp Care Lvl 3 Diagnoses GIB (gastrointestinal bleeding) K92.2 GI bleed type/associated pathology: unspecified gastrointestinal hemorrhage type Heme positive stool R19.5 (1) GIB (gastrointestinal bleeding) GI bleed type/associated pathology: unspecified gastrointestinal hemorrhage t ype Qualified Code(s): K92.2 - Gastrointestinal hemorrhage, unspecified
--- NOTE | 2020-08-23 14:52 | Ultrasound Report ---
US breast LT limited CLINICAL HISTORY: Left breast mass COMPARISON STUDY: No previous studies for comparison. FINDINGS: There is a palpable left subareolar abnormality, slightly asymmetric to the left. This is t esme. Ultrasound evaluation reveals enlargement of the areolar complex as compared to the asymmetric right side. This likely represents asymmetric gynecomastia. Clinical follow-up and correlation with mammographic evaluation is recommended. IMPRESSION: 1. Ultrasound findings suggestive of asymmetric left-sided gynecomastia. 2. Clinical follow-up, and correlation with diagnostic mammography subsequent to inpatient discharge is recommended. ACT 112: Negative or not required by law. Electronically signed by: Bandar Magana M.D. 08/23/2020 2:51 PM
--- NOTE | 2020-08-23 21:26 | Hospitalist Progress Note ---
Date of Service August 23, 2020 Assessment & Plan (1) Acute anemia: Presumed acute, though the patient has not noted any blood or melenic stools. - Hgb bounced from 6.7 to 9.2 with 2 units PRBCs. - EGD on 08/22 indicates possible celiac disease. - Will order tTG and IgA - Follow pathology -> Consistent with celiac. Per GI, discharge to senior living and get follow up CBC in 1 month. - Restart gluten-free diet. (2) Breast nodule: Patient noted this on 08/22. - U/s reveals asymmetric gynecomastia. - Outpatient mammogram recommended. (3) GIB (gastrointestinal bleeding): Fecal occult positive. - As above (4) BPH (benign prostatic hyperplasia): No LUTS at present. - Will continue tamsulosin. (5) DVT prophylaxis: SCDs - Holding heparin for anemia and concern for GI bleeding Admission and Anticipated Discharge Date Admission Date: August 21, 2020 Subjective Feels fine overall. Reports some left nipple soreness that is actually a lump lateral to the nipple. Reports no fevers/chills, chest pain, shortness of breath, abdominal pain, nausea, or vomiting. Physical Exam Constitutional: WD/WN, vitals as above Eyes: EOM intact bilaterally; no conjunctival abnormality ENMT: external ear and nose normal, oropharynx normal Neck: trachea midline, no thyromegaly normal visual inspection Respiratory: normal respiratory effort, lungs clear to auscultation no respiratory distress Cardiovascular: RRR, no murmur, no edema Gastrointestinal (Abdomen): Inspection/Auscultation: abdomen normal to inspection; abdomen not distended Musculoskeletal: no cyanosis or clubbing, extremities motor strength 5/5 Skin: no rashes, warm and dry Neurologic: moves all extremities and awake Psychiatric: Orientation: alert, oriented to person and cooperative Results & Data Results & Data ([facility]) Vital Signs (Past 12 Hours) Vital Signs Temp Pulse Pulse Resp BP Pulse Ox 08/23/20 19:45 37.1 C 82 18 119/77 96 08/23/20 16:20 78 08/23/20 15:46 37.2 C 85 18 118/77 96 08/23/20 11:23 36.8 C 71 20 124/79 96 PG Care Time/CCT Total # of Minutes Spent Total Time Spent with Patient: Total time spent is greater than 50% in coordination of care (as documented) at patient's floor/unit and/or counseling patient: Coding Level of Care Code 76133 Subseq Hosp Care Lvl 3 Diagnoses Acute anemia D64.9 Breast nodule N63.0 GIB (gastrointestinal bleeding) K92.2 GI bleed type/associated pathology: unspecified gastrointestinal hemorrhage type BPH (benign prostatic hyperplasia) N40.0 DVT prophylaxis Z29.9 (1) GIB (gastrointestinal bleeding) GI bleed type/associated pathology: unspecified gastrointestinal hemorrhage type Qualified Code(s): K92.2 - Gastrointestinal hemorrhage, unspecified
[2020-08-23] MEDS: IRON SUCROSE 300 MG in SODIUM CHLORIDE 0.9% 250 ML IV SCH (22:03)
[2020-08-24 06:15] LABS: Hematocrit (blood only) 33.7 % (42-52); Hemoglobin 9.5 g/dL (14.0-18.0); Mean Corpuscular Hemoglobin 19.8 pg (25-34); Mean Corpuscular Hgb Conc 28.2 g/dL (32-36); Mean Corpuscular Volume 70.2 fL (80-100); Platelet Count 340 K/uL (130-400); RDW Coefficient of Variation 21.7 % (11.5-14.5); RDW Standard Deviation 53.6 fL (36.4-46.3); White Blood Count 8.38 K/uL (4.8-10.8)
[2020-08-24] MEDS: PANTOprazole 40 MG TAB PO SCH (07:51)
[2020-08-24] MEDS: IRON SUCROSE 300 MG in SODIUM CHLORIDE 0.9% 250 ML IV SCH (07:51)
[2020-08-24 11:42] VITALS: BP 127/73; TEMP 98.4; O2SAT 95
[2020-08-24 18:15] VITALS: PULSE 82
--- NOTE | 2020-08-29 10:32 | Discharge Summary ---
Date of Service August 24, 2020 Admission HPI Per Admitting Provider Patient is a 60-year-old male with limited reported past medical history of GERD and prostamegaly that is currently incarcerated at [facility]. He states that he has been enjoying his typical state of good health, but had yearly labs performed last week that were done as part of his routine yearly physical exam. He states that after his labs, he was contacted by the [facility] as they were concerned for his H&H as well as his potassium levels. He had labs repeated which demonstrated persistently low hemoglobin and hematocrit levels. He was subsequently directed to the emergency department for further evaluation and management. Upon arrival in the emergency department, the patient was noted to have hemoglobin of 7.0 with hematocrit of 26. This is been consistent for the last few days. Patient states that despite these numbers, he has noted no change in his physical activity or tolerance. He states that he walks daily every day outside and has been performing the duties of his job without issue. He specifically denies any presyncopal symptoms, dizziness, lightheadedness, shortness of breath, chest pain, palpitations, or abdominal pain. He denies any black/tarry stools. He states that he did perform Hemoccult testing as part of his yearly evaluation which she was informed were negative. He denies any family history of colon cancer, however he states that his brother did recently have a colonoscopy with subsequent polypectomy. His father had a history of liver cancer as well as lung cancer. Mother did have significant history for factor VII deficiency. He states that he has been aware of this and does take note when he bleeds from anything. He did mayelin his ear recently while shaving and states that he stopped bleeding within 30 minutes. He has never noted any issues with bleeding in the past. Patient has personally never had a colonoscopy performed. He was institutionalized just before the age of 48 and has had no routine maintenance that he is aware of. Patient denies any headaches, dizziness, lightheadedness, chest pain, palpitations, shortness of breath, pleuritic pain, nausea, vomiting, abdominal pain, hematochezia, melena, hematuria, dysuria, or numbness/weakness to the extremities. Patient denies any recent exposure to COVID-19 positive individuals. He reports no history of recent shortness of breath, cough, fevers, GI distress, or loss of taste/smell. Principal Diagnosis Acute Anemia Discharge Exam Constitutional: WD/WN, vitals as above Eyes: EOM intact bilaterally; no conjunctival abnormality ENMT: external ear and nose normal, oropharynx normal Neck: trachea midline, no thyromegaly normal visual inspection Respiratory: normal respiratory effort, lungs clear to auscultation no respiratory distress Cardiovascular: RRR, no murmur, no edema Gastrointestinal (Abdomen): Inspection/Auscultation: abdomen normal to inspection; abdomen not distended Musculoskeletal: no cyanosis or clubbing, extremities motor strength 5/5 Skin: no rashes, warm and dry Neurologic: moves all extremities and awake Psychiatric: Orientation: alert, oriented to person and cooperative Discharge Data Allergies Allergy/AdvReac Type Severity Reaction Status Date / Time No Known Allergies Allergy Verified 08/22/20 15:13 Consultations 08/21/20 15:33 ED Decision to Admit Stat 08/21/20 18:51 Consult Gastroenterology Routine Procedures Performed Operation Date: 08/22/20 16:30 Actual Procedures p EGD Polypectomy - Marshall Cruz MD Ordered Studies 08/23/20 13:00 US breast LT limited Routine Hospital Course (1) Acute anemia: Presumed acute, though the patient has not noted any blood or melenic stools. - Hgb bounced from 6.7 to 9.2 with 2 units PRBCs. - EGD on 08/22 indicates possible celiac disease. - Will order tTG and IgA. awaiting resulrs - Follow pathology -> Consistent with celiac. Per GI, discharge to senior care and get follow up CBC in 1 month. - Restart gluten-free diet. will discharge. (2) Breast nodule: Patient noted this on 08/22. - U/s reveals asymmetric gynecomastia. - Outpatient mammogram recommended. (3) GIB (gastrointestinal bleeding): Fecal occult positive. - As above (4) BPH (benign prostatic hyperplasia): No LUTS at present. - Will continue tamsulosin. (5) DVT prophylaxis: SCDs - Holding heparin for anemia and concern for GI bleeding Total Time Total Time Spent Total Time Spent (In Minutes): 32 Total Time Includes: Examination of the Patient, Discharge Planning and Medication Reconciliation Discharge Plan Discharge Items Patient Disposition: [facility] Reason For Visit: GIB, ACUTE BLOOD LOSS ANEMIA Discharge Diagnosis: GIB, acute blood loss anemia Activity: Resume your previous activity Non-emergency contact: Primary Care Provider Call non-emergency contact if: you have any medication questions Follow-up/Referrals: Moy MCKEON [Primary Care Provider] - Diet: Gluten Free Agustín Attending Provider Instructions: Continue 100% gluten free diet while awaiting results of small bowel biopsies. 2. Continue Pantoprazole 40 mg but can reduce to once daily as patient reports having reflux symptoms prior to admission. 3. Continue supportive care. Repeat CBC in 1 month. Also recheck BMP in one month. Recommend using bottom bunk bed due to history of low hemoglobin. represents asymmetric gynecomastia. Clinical follow-up and correlation with mammographic evaluation is recommended. Pending Studies at Discharge: No Stand-Alone Forms: My [facility] [employer] Skilled Items Patient informed of condition?: Yes Discharge Level of Care: Other Communicable Disease: No Discharge Prognosis: Stable Lines: None Urinary Catheter: No Medications and DC Order Prescriptions: New ferrous gluconate 324 mg (38 mg iron) tablet 324 mg PO BID Qty: 60 RF: 0 Continued tamsulosin 0.4 mg Capsule 0.4 mg PO DAILY RF: 0 simethicone [Mi-Acid Gas Relief(simethicon)] 80 mg Tablet,Chewable 160 mg PO TID RF: 0 Changed pantoprazole 20 mg Tablet,Delayed Release (Dr/Ec) 40 mg PO DAILY Qty: 0 RF: 0 Discharge Orders: Discharge Order (Routine); Ordered 08/24/20 Ordered By: Garland Law Admission Data Admit Date/Time: 08/21/20 16:18 Attending Provider: Garland Law Admit Provider: Ophelia Sin Primary Care Provider: Moy MCKEON Other Providers: Zhen Louis ; Alyse Paz ; Ana María Hayden ; Marshall Cruz ; Alvarado Donahue Other Interventions: Discharge Summary Assessment (RN) Last Done: 08/24/20 18:13 Coding Level of Care Code D/C Day Management >30 mins Diagnoses Acute anemia D64.9 Breast nodule N63.0 GIB (gastrointestinal bleeding) K92.2 GI bleed type/associated pathology: unspecified gastrointestinal hemorrhage type BPH (benign prostatic hyperplasia) N40.0 DVT prophylaxis Z29.9 Time Spent (min) 32
== END 2020-08-24 20:19 | DRG 812 ==
LOC: ED 13:50 → 2S 16:18 → SUATTDRO 16:18 → 2S 18:13